=== PATIENT | male | born 1985 | race Caucasian/White ===

== ENCOUNTER 2019-11-11 20:14 | Emergency (ER) | payer BC ==
[~2019-11-11] VITALS: Ht 165.1 cm; Wt 80.7 kg
[2019-11-11 20:21] VITALS: Ht 165.1 cm; Wt 80.7 kg
[2019-11-11 21:23] LABS: BASOPHIL % 0.2 % (0-2); PLATELET COUNT 288 x10^3mcL (130-400)
[2019-11-11 21:44] LABS: ALBUMIN 3.1 g/dL (3.4-5.0); BILIRUBIN TOTAL 0.7 mg/dL (0.20-1.00); CARBON DIOXIDE 31.3 mmol/L (21-32); CHLORIDE SERUM 102 mmol/L (98-107); CREATININE SERUM 0.8 mg/dL (0.7-1.3); GFR1 > 60 mL/min; GLUCOSE SERUM 141 mg/dL (74-106); POTASSIUM SERUM 3.9 mmol/L (3.5-5.1); SODIUM SERUM 139 mmol/L (136-145); TOTAL PROTEIN, SERUM 7.3 g/dL (6.4-8.2)
[2019-11-11 21:45] LABS: ALKALINE PHOSPHATASE 105 U/L (46-116); ALT/SGPT 55 U/L (16-63); AST/SGOT 28 U/L (15-37); CHOLESTEROL 145 mg/dL (<200); HDL CHOLESTEROL 35 mg/dL (40-60); MAGNESIUM 2.3 mg/dL (1.8-2.4)
[2019-11-11 22:04] LABS: AMPHETAMINE QUAL UR NONE DETECTED (See below)
[2019-11-11 23:01] VITALS: BP 108/65
== END 2019-11-11 23:01 | disposition home or self-care (01) ==
LOC: ED 20:14
PROVIDERS: Emergency Medicine
DX: R56.9 Unspecified convulsions (principal); R42 Dizziness and giddiness; R25.1 Tremor, unspecified
CPT/HCPCS: J7030; Q0092